=== PATIENT | female | born 1990 | race Hispanic/Latino ===

== ENCOUNTER 2018-12-24 13:18 | Emergency (ER) | payer SELFPAY ==
[2018-12-24] MEDS ORDERED: ATIVAN IM PRN (13:56)
[2018-12-24] MEDS ORDERED: HALDOL IM PRN (13:56)
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
[2018-12-24 14:02] LABS: Bacteria,Urine 1+ /HPF (Negative); Bilirubin,Urine NEG (Negative); Blood,Urine NEG (Negative); Color,Urine Yellow (Yellow); HCG Qualitative,Urine Negative (Negative); Mucus,Urine 3+ /HPF
[2018-12-24 14:03] LABS: RBC,Urine < 1.0 /HPF (0.0-6.0)
[2018-12-24 14:09] LABS: Benzodiazepines Screen,Urine PRESUMPTIVE NEGATIVE; Cocaine Screen,Urine PRESUMPTIVE NEGATIVE; Methadone Screen,Urine PRESUMPTIVE NEGATIVE; Opiate Screen,Urine PRESUMPTIVE NEGATIVE
[2018-12-24 14:25] LABS: Amphetamine Screen,Urine PRESUMPTIVE POSITIVE; Cannabinoid Screen,Urine PRESUMPTIVE POSITIVE
[2018-12-24 14:41] LABS: Basophils # (Auto) 0.1 K/mm3 (0.0-0.1); Basophils % (Auto) 1.4 % (0.0-1.8); Eosinophils # (Auto) 0.2 K/mm3 (0.0-0.4); Hematocrit 43.2 % (30.3-42.9); Hemoglobin 14.9 gm/dl (10.1-14.3); Lymphocytes # (Auto) 1.5 K/mm3 (1.2-5.4); Lymphocytes % (Auto) 31.7 % (13.4-35.0); Mean Corpuscular HGB Conc 35 % (30-34); Mean Corpuscular Volume 89 fl (79-97); Monocytes # (Auto) 0.3 K/mm3 (0.0-0.8); Monocytes % (Auto) 6.6 % (0.0-7.3); Platelet Count 264 K/mm3 (140-440); Red Blood Count 4.83 M/mm3 (3.65-5.03); Red Cell Distribution Width 14.8 % (13.2-15.2)
[2018-12-24 14:56] LABS: BUN/Creatinine Ratio 13; Blood Urea Nitrogen 12 mg/dL (7-17); Calcium 9.6 mg/dL (8.4-10.2); Hemolysis Index 12
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
[2018-12-26 14:19] VITALS: BP 127/81
--- NOTE | 2018-12-26 17:36 | Progress Note ---
Subjective - Reason for Consult Consult date: 12/26/18 Reason for consult: follow up - Chief Complaint Chief complaint: "I value my life; I could never hurt my family." "I couldn't sleep." 28 year old HF with history of bipolar I d/o presents to [facility] and is now on 1013. Patient notes that her family brought her into the hospital to get help for depression. According to the record and today's interview, patient was triggered (per patient and her ) after her ''s' grandma has been getting progressively worse. Her has been away at [place] dealing with this and has been stressing the patient out. She reports her symptoms resolved since she has been sleeping. She tested positive for amphetamine. She denies use of methamphetamine but admits to taking her 's adderall. She states she did not realized the dangers. Her insomnia could be attributed to adderall use, made worse by lack of mood stabilizing medication for bipolar. She adamntly denies SI/HI. Per the record, Dr. Love spoke with the patient's , who reportedly stated patient needs her support and her family reacted too quickly rather than obtaining an outpatient therapist and getting her back on her Seroquel. Ann Marie plans to follow up with outpatient mental health services and wants to continue taking seroquel. She acknowledged the dangers of taking medication which is not prescribed to her. Mental Status Exam - Vital signs Last Vital Signs Temp 98.3 F 12/26/18 14:18 Pulse 79 12/26/18 14:18 Resp 18 12/26/18 14:18 BP 127/81 12/26/18 14:18 Pulse Ox 99 12/26/18 14:18 - Exam Orientation: time, place, person Affect: normal Mood: appropriate Thought content: other (no suicidal or homicidal ideation. She does not recall saying she would harm someone.) Thought Process: Intact Perceptions: none Speech: normal rate and pattern Concentration: focused Motor activity: normal Level of consciousness: alert Memory: Intact Sleep Symptoms: None Interaction: cooperative (behavior is appropriate) Assessment and Plan Impression: Currently patient denies SI or HI She admits to taking one of her 's adderall, not sleeping, and then having suicidal ideation when she could not sleep for days. She denies regular use of adderall and denies use of methamphetamine bipolar 1 PTSD Recommendations: Continue Seroquel for mood and sleep- 200mg po qhs- risks/benefits discussed Abstain from all mood altering or illicit substances Her advocates for her to be discharged home and follow up with outpatient treatment. Patient agrees. Rescind 1013 dispo-home Crisis/safety plan done by [facility] and referral provided by [facility], including the [facility] and [place] crisis and access line. will staff with Dr. Doroteo Love
== END 2018-12-26 17:37 ==
LOC: EEVIPCON 13:18 → ED 13:18
DX: F32.9 Major depressive disorder, single episode, unspecified (principal); F12.10 Cannabis abuse, uncomplicated; F17.200 Nicotine dependence, unspecified, uncomplicated
CPT/HCPCS: 36415; 80048; 80307; 81001; 81025; 82550; 85025; 99284; G0480; 80320

== ENCOUNTER 2020-02-22 10:53 | Outpatient (CLI) | payer OTHER | END 2020-02-22 10:54 | disposition home or self-care (01) | LOC: LAB 10:53 | PROVIDERS: ATTEND Psychiatry & Neurology Psychiatry | DX: F31.13 Bipolar disorder, current episode manic without psychotic features, severe (principal) | CPT/HCPCS: 36415; 86592 ==